=== PATIENT | male | born 1995 | race American Indian/Alaskan Native ===

== ENCOUNTER 2019-09-08 21:51 | Emergency (ER) | payer SELFPAY ==
[2019-09-08 21:56] VITALS: BP 118/66
--- NOTE | 2019-09-08 22:09 | Emergency Department Report ---
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 Reports that he has been smoking WEED. No travel no close contact to positive covid-19. No fever, chest pain. - Exam Vital Signs: Vital Signs 09/08/19 21:53 Temperature 98.5 F Pulse Rate 104 H Respiratory 18 Rate Blood Pressure 118/66 O2 Sat by Pulse 99 Oximetry Physical Exam: Axo times 3 NAD walking fast without SOB or gasping for air Chest CTAB 99% RM Cardiac RRR HR 86 Ambulatory with out difficulties. MSE screening note: Focused history and physical exam performed. 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 Reports that he has been smoking WEED. No travel no close contact to positive covid-19. No fever, chest pain. Patient vital was rechecked by this provider with HR 86 Ox 99% on RM. Recommend patient to stop smoking weed. ED Disposition for MSE Disposition: Z-07 MED SCREENING EXAM-LEFT Is pt being admited?: No Does the pt Need Aspirin: No Condition: Stable Additional Instructions: Recommend patient to stop smoking weed.
== END 2019-09-09 01:03 | disposition left against medical advice (07) ==
LOC: ED 21:51
DX: R06.02 Shortness of breath (principal)
CPT/HCPCS: 99282